=== PATIENT | male | born 1965 | race African-American/Black ===

== ENCOUNTER 2020-10-05 05:37 | Emergency (ER) | payer SELFPAY ==
[~2020-10-05] VITALS: Ht 188 cm; Wt 88.6 kg
[2020-10-05 06:01] VITALS: TEMP 98.4
[2020-10-05 07:21] LABS: HEMATOCRIT 46.4 % (42.0-52.0); MEAN CELL VOLUME 94 fl (80.0-100.0); MEAN CORPUSCULAR HEMOGLOBIN 32 pg (27.0-31.0); MEAN CORPUSCULAR HGB CONC 35 g/dl (33.0-37.0); MEAN PLATELET VOLUME 9.9 fl (7.4-10.4); PLATELET COUNT 211 K/mm3 (130-400); RED BLOOD COUNT 4.96 M/mm3 (4.20-5.60)
[2020-10-05 07:24] LABS: COLLECTION METHOD CLEAN CATCH
[2020-10-05 07:32] LABS: PH 6 (5-8); SQUAMOUS EPITHELIAL None Seen /hpf; URINE APPEARANCE Clear; URINE BACTERIA None Seen /hpf; URINE BILIRUBIN Negative (NEGATIVE); URINE BLOOD Negative (NEGATIVE); URINE COLOR Yellow; URINE GLUCOSE Negative (NEGATIVE); URINE KETONE Negative (NEGATIVE); URINE LEUKOCYTE ESTERASE Negative (NEGATIVE); URINE NITRATE Negative (NEGATIVE); URINE PROTEIN(semi-quant) Negative (NEGATIVE); URINE RBC 0-2 /hpf; URINE UROBILINOGEN >=4.0 mg/dL (NEGATIVE)
[2020-10-05 07:41] LABS: TRICYCLIC ANTIDEPRESS URINE NEGATIVE
[2020-10-05 07:41] LABS: ALANINE AMINOTRANSFERASE 73 U/L (4-49); ALBUMIN 4.4 gm/dL (3.5-5.0); ALKALINE PHOSPHATASE 84 U/L (50-136); ANION GAP 9 mmol/L (7-16); AST,SGOT 92 U/L (15-37); BILIRUBIN,TOTAL 0.9 mg/dL (0.0-1.0); BLOOD UREA NITROGEN 15 mg/dL (9-20); CALCIUM 9.5 mg/dL (8.4-10.2); CARBON DIOXIDE 24 mmol/L (22-30); CHLORIDE 104 mmol/L (98-107); CREATININE, serum 0.93 (0.66-1.25); GLUCOSE 109 mg/dL (74-106); LIPASE 84 U/L (23-300); POTASSIUM 4.2 mmol/L (3.4-5.0); SODIUM 138 mmol/L (137-145); TOTAL PROTEIN 8.4 gm/dL (6.4-8.2)
[2020-10-05 07:42] LABS: ACETAMINOPHEN < 10 ug/mL (10-30); SALICYLATE < 1.0 mg/dL
[2020-10-05 08:03] LABS: BAND 1 % (0-10); LYMPHOCYTE 28 % (20.0-51.0); NEUTROPHILS 65 % (42.0-75.2)
[2020-10-05 08:04] LABS: PLATELET ESTIMATE NORMAL (NORMAL)
[2020-10-05 10:30] VITALS: BP 110/71; PULSE 88
== END 2020-10-05 10:45 | disposition home or self-care (01) ==
LOC: COL.ER 05:37
PROVIDERS: Emergency Medicine
DX: R44.1 Visual hallucinations (principal)

== ENCOUNTER → 2021-04-27 | Emergency (ER) | payer SELFPAY ==
[~2021-04-27] MED LIST: MOBIC15 MG PO
== END ==
LOC: COL.ER 12:51
DX: R69 Illness, unspecified (principal)

== ENCOUNTER 2021-04-29 10:42 | Emergency (ER) | payer SELFPAY ==
[~2021-04-29] VITALS: Ht 188 cm; Wt 86.4 kg
[2021-04-29] MEDS ORDERED: MOBIC15 MG PO (11:34)
[2021-04-29 11:41] VITALS: BP 122/64; PULSE 78; TEMP 98
== END 2021-04-29 11:42 | disposition home or self-care (01) ==
LOC: COL.ER 10:42
DX: M17.12 Unilateral primary osteoarthritis, left knee (principal); M67.432 Ganglion, left wrist
CPT/HCPCS: J1885